=== PATIENT | female | born 1940 | race Caucasian/White ===

== ENCOUNTER → 2017-03-17 | Outpatient (CLI) | payer MEDICARE, BC ==
--- NOTE | 2017-03-18 10:58 | Diagnostic Imaging Report ---
EXAMINATION: Bilateral screening mammogram 2D views with tomosynthesis. The current study was also evaluated with a Computer Aided Detection (CAD) system. INDICATION: Screening. PERSONAL HISTORY: No current complaints stated on the questionnaire. COMPARISON: 03/14/2016. FINDINGS: The breasts are composed of heterogeneously dense parenchyma which may decrease mammographic sensitivity. Benign-appearing calcifications are seen. Allowing for technique and positional differences, no suspicious change is seen. IMPRESSION: No significant change. ACR BI-RADS Category 2: Benign findings. Result letter will be mailed to the patient. Note: At least 10% of breast cancer is not imaged by mammography. Dictated by: Dictated on workstation # [id number]
== END ==
LOC: RAD 10:41
PROVIDERS: ATTEND Nurse Practitioner Family
DX: Z12.31 Encounter for screening mammogram for malignant neoplasm of breast (principal)
CPT/HCPCS: 77067

== ENCOUNTER 2017-09-09 05:42 | Outpatient (CLI) | payer MEDICARE, BC ==
[~2017-09-09] VITALS: Ht 172.7 cm; Wt 60.3 kg
[2017-09-09] MEDS ORDERED: DILT180C54 PO (15:35)
[2017-09-09] MEDS ORDERED: ESTR0.3T PO (15:35)
[2017-09-09] MEDS ORDERED: LISI-552 PO (15:35)
[2017-09-09] MEDS ORDERED: POLY119P5 PO (15:35)
[2017-09-09] MEDS ORDERED: LINA145C PO (15:35)
[2017-09-09] MEDS ORDERED: OMEG1CAP PO (15:36)
[2017-09-09] MEDS ORDERED: LOVA20TA2 PO (15:36)
== END 2017-09-09 15:38 ==
LOC: PREOP 05:42
PROVIDERS: ATTEND Surgery
DX: Z01.818 Encounter for other preprocedural examination (principal); Z12.11 Encounter for screening for malignant neoplasm of colon

== ENCOUNTER 2017-09-15 08:39 | Day surgery (SDC) | payer MEDICARE, BC ==
[~2017-09-15] VITALS: Ht 172.7 cm; Wt 60.3 kg
[~2017-09-15 08:39] MED LIST: DILT180C54 PO; ESTR0.3T PO; LINA145C PO; LISI-552 PO; LOVA20TA2 PO; OMEG1CAP PO; POLY119P5 PO
[2017-09-15 09:03] VITALS: BP 157/82
[2017-09-15] MEDS ORDERED: NS IV 500 ML 500 ML ONE (09:19)
--- NOTE | 2017-09-15 09:34 | History & Physicial ---
History of Present Illness History of Present Illness Reason for visit/HPI to undergo screening colonoscopy. No family history of colon cancer Date of Admission 09/15/17 Date Seen by Provider: Sep 15, 2017 Time Seen by Provider: 09:32 I consulted on this patient on 09/15/17 09:32 Attending Physician Mellisa Davila MD Admitting Physician Jonathan Day MD Consult Allergies and Home Medications Allergies Coded Allergies: No Known Drug Allergies (Verified Allergy, Unknown, 11/24/06) Home Medications Diltiazem HCl 180 Mg Cap.er.24h, 180 MG PO DAILY, (Reported) Estrogens, Conjugated 0.3 Mg Tablet, 0.3 MG PO DAILY, (Reported) Linaclotide 145 Mcg Capsule, 145 MCG PO DAILY PRN for CONSTIPATION-2ND LINE, ( Reported) Lisinopril 20 Mg Tablet, 20 MG PO DAILY, (Reported) Lovastatin 20 Mg Tablet, 20 MG PO HS, (Reported) [place]-3 Acid Ethyl Esters 1 Gm Capsule, 1 GM PO HS, (Reported) Polyethylene Glycol 3350 119 Gm Powder, 17 GM PO HS PRN for CONSTIPATION-1ST LINE, (Reported) Patient Home Medication List Home Medication List Reviewed: Yes Past Lsrzshi-Rvvwfw-Xthzku Hx Patient Social History Marrital Status: Employed/Student: retired Alcohol Use: Occasionally Uses Alcohol Beverage of Choice: Wine Recreational Drug Use: No Smoking Status: Never a Smoker Recent Foreign Travel: No Contact w/other who traveled: No Recent Hopitalizations: No Recent Infectious Disease Expo: No Seasonal Allergies Seasonal Allergies: Yes Surgeries Bladder Surgery, Hysterectomy Cardiovascular Hypertension Reproductive System Hx Reproductive Disorders: No Gastrointestinal Chronic Constipation Constitutional: no symptoms reported EENTM: no symptoms reported Respiratory: no symptoms reported Cardiovascular: no symptoms reported Gastrointestinal: constipation Genitourinary: no symptoms reported Musculoskeletal: no symptoms reported Skin: no symptoms reported Psychiatric/Neurological: No Symptoms Reported Physical Exam Vital Signs Vital Signs - First Documented 09/15/17 09:03 Temp 98.0 Pulse 76 Resp 18 B/P (MAP) 157/82 (107) Pulse Ox 97 O2 Delivery Room Air Capillary Refill : General Appearance: No Apparent Distress Neck: Normal Inspection Respiratory: Lungs Clear Cardiovascular: Regular Rate, Rhythm Gastrointestinal: Non Tender, Soft Rectal: Deferred Extremity: Normal Inspection Neurologic/Psychiatric: Alert, Oriented x3 Skin: Warm/Dry Assessment/Plan Assessment and Plan lady here to undergo screening colonoscopy. Procedure details reviewed thoroughly. Seems to be in agreement to proceed Admission Diagnosis Admission Status: Other (Outpt Proc) MELLISA DAVILA MD Sep 15, 2017 09:34
--- NOTE | 2017-09-15 09:34 | Conscious Sedation/ASA ---
Conscious Sedation Pre-Proced Time Reviewed: 09:34 ASA Class: 2 Airway Mallampati Classification: ([place] appropriate class) I. II. III, IV Lungs Heart ASA score ASA 1: a normal healthy patient ASA 2: a patient with a mild systemic disease (mid diabetes, controlled hypertension, obesity ASA 3: a patient with a severe systemic disease that limits activity (angina , COPD, prior Myocardial infarction) ASA 4: a patient with an incapacitating disease that is a constant threat to life (CHF, renal failure) ASA 5: a moribund patient not expected to survive 24 hrs. (ruptured aneurysm) ASA 6: a declared brain patient whose organs are being harvested. For emergent operations, add the letter E after the classification Grade 1 Sedation Plan: Discussed options with patient/fam Note The patient is an appropriate candidate to undergo the planned procedure, sedation, and anesthesia. The patient immediately re-assessed prior to indication. MELLISA FINNEY MD Sep 15, 2017 09:34
[2017-09-15] MEDS ORDERED: MIDAZOLAM 2 MG/2 ML (VERSED) VIAL ONE ×3 (09:53→10:17)
[2017-09-15] MEDS ORDERED: fentaNYL INJECTION 100 MCG/2 ML AMP ONE (09:54)
[2017-09-15] MEDS: fentaNYL INJECTION 100 MCG/2 ML AMP IVP PRN ×2 (10:03→10:20)
[2017-09-15] MEDS: MIDAZOLAM 2 MG/2 ML (VERSED) VIAL IVP PRN ×3 (10:05→10:15)
--- NOTE | 2017-09-15 10:38 | Endo Procedure Record ---
Endo Procedure Report Date of Procedure Last Colonoscopy: Yes Sep 15, 2017 Surgeon (s) MELLISA FINNEY MD Post Procedure/Op Diagnosis sigmoid diverticulosis Procedure Performed colonoscopy to cecum Description of Procedure Anesthesia Type: Conscious Sedation Specimen(s) collected/removed no specimen Description of the Procedure Indication for the procedure: This lady came in for screening colonoscopy. Informed consent was obtained after reviewing the procedure in detail. Description of the procedure: She was placed in left lateral to cubitus position and her vital signs were monitored. Conscious sedation was achieved using Versed and fentanyl. Digital rectal examination was unremarkable. The colonoscope was then introduced in the rectum and advanced all the way up to cecum Redundancy of the colon made the examination slightly tedious. The scope was then withdrawn slowly and the mucosa examined in a systematic fashion. Findings: A minimal degree of sigmoid diverticulosis. No polyps were found She tolerated the procedure well and was taken back to the nursing area in a stable condition. Impression: Screening colonoscopy. No polyps. No family history. Copy Copies To 1: DEMETRICE ANDERSON MD, XAVIER M MD Sep 15, 2017 10:38
--- NOTE | 2017-09-15 10:40 | Discharge Inst-Simple/Standard ---
Discharge Inst-Standard Discharge Medications New, Converted or Re-Newed RX: Other Patient Instructions/Follow Up Plan of Care/Instructions/FU: f/u with primary PRN Activity as Tolerated: Yes Discharge Diet: No Restrictions MELLISA FINNEY MD Sep 15, 2017 10:40
[2017-09-15 10:45] VITALS: BP 109/43
[2017-09-15 11:22] VITALS: BP 100/83
[2017-09-15] MEDS ORDERED: NS IV 500 ML 500 ML IV PRN (11:28)
[2017-09-15 11:45] VITALS: BP 100/83
== END 2017-09-15 11:45 | disposition home or self-care (01) ==
LOC: ENDO 08:39
PROVIDERS: ATTEND Surgery
DX: Z12.11 Encounter for screening for malignant neoplasm of colon (principal); K57.30 Diverticulosis of large intestine without perforation or abscess without bleeding; K59.09 Other constipation
CPT/HCPCS: G0121

== ENCOUNTER → 2018-03-19 | Outpatient (CLI) | payer MEDICARE, BC ==
--- NOTE | 2018-03-19 20:20 | Diagnostic Imaging Report ---
INDICATION: Routine screening. Comparison is made with prior mammograms from 03/17/2017 and 03/14/2016. 2-D and 3-D bilateral screening mammography was performed with computer-aided detection (CAD) system. FINDINGS: Scattered fibroglandular densities are identified bilaterally. The parenchymal pattern appears stable. No dominant mass or malignant-appearing microcalcifications are seen. The axillae are unremarkable. IMPRESSION: No mammographic features suspicious for malignancy are identified. ACR BI-RADS Category 1: Negative. Result letter will be mailed to the patient. Note: At least 10% of breast cancer is not imaged by mammography. Dictated by: Dictated on workstation # [id number]
== END ==
LOC: RAD 10:14
DX: Z12.31 Encounter for screening mammogram for malignant neoplasm of breast (principal)
CPT/HCPCS: 77067

== ENCOUNTER 2020-02-29 05:47 | Outpatient (RCR) | payer MEDICARE, BC ==
[~2020-02-29] VITALS: Ht 172.7 cm; Wt 59.1 kg
[2020-02-29] MEDS ORDERED: ASPI-999 PO (14:14)
[2020-02-29] MEDS ORDERED: VITA-246 PO (14:14)
[2020-02-29] MEDS ORDERED: ESCI10TA55 PO (14:14)
[2020-02-29] MEDS ORDERED: DILT240C53 PO (14:14)
[2020-02-29] MEDS ORDERED: ASCO500C17 PO (14:14)
[2020-02-29] MEDS ORDERED: BIOT10005 PO (14:14)
== END 2020-02-29 14:30 | disposition home or self-care (01) ==
LOC: PREOP 05:47
PROVIDERS: ATTEND Specialist
DX: Z01.818 Encounter for other preprocedural examination (principal)

== ENCOUNTER → 2020-03-01 | Outpatient (CLI) | payer MEDICARE, BC ==
[~2020-03-01] MED LIST changes: +ASCO500C17 PO; +ASPI-999 PO; +BIOT10005 PO; +DILT240C53 PO; +ESCI10TA55 PO; +VITA-246 PO
== END ==
LOC: LAB FS 10:28
PROVIDERS: ATTEND Specialist
DX: Z01.812 Encounter for preprocedural laboratory examination (principal); Z20.828 Contact with and (suspected) exposure to other viral communicable diseases
CPT/HCPCS: 87635

== ENCOUNTER 2020-03-03 06:01 | Day surgery (SDC) | payer MEDICARE, BC ==
[~2020-03-03] VITALS: Ht 172.7 cm; Wt 59.1 kg
[2020-03-03] MEDS ORDERED: MOXIFLOXACIN OPHTH SOLN 5 MG/ML 0.3 ML SYRINGE OP ONE (06:15)
[2020-03-03] MEDS ORDERED: TIMOLOL MALEATE 0.5% 5 ML (TIMOPTIC) BTL OU PRN (06:15)
[2020-03-03] MEDS ORDERED: LIDOCAINE PF 1% 2 ML VIAL IR PRN (06:15)
[2020-03-03] MEDS ORDERED: POVIDONE (BETADINE) OPHTH SOLN 5% 30 ML OP ONE (06:15)
[2020-03-03] MEDS: TETRACAINE 0.5% OPHTH SOLN 4 ML BTL (SINGLE DOSE ONLY) OU PRN ×4 (06:24→06:49)
[2020-03-03 06:27] VITALS: BP 143/68
[2020-03-03] MEDS: TROPICAMIDE 1% OPH SOLN (MYDRIACYL) 15 ML BTL OP SCH ×3 (06:35→06:49)
[2020-03-03] MEDS: PHENYLEPHRINE 10% OPHTH (NEO-SYN) 5 ML BTL OU SCH ×3 (06:35→06:49)
[2020-03-03] MEDS ORDERED: MIDAZOLAM 2 MG/2 ML (VERSED) VIAL ONE (06:44)
--- NOTE | 2020-03-03 07:27 | Ophthalmologist Pre-Op Note ---
Pre-Operative Progress Note H&P Reviewed The H&P was reviewed, patient examined and no changes noted. Date H&P Reviewed: Mar 03, 2020 Time H&P Reviewed: 07:27 Pre-Op Dx Cataract, Right Eye LASHAE BOX MD Mar 03, 2020 07:27
--- NOTE | 2020-03-03 07:48 | Ophthalmology Operative Report ---
Cataract removal/placement IOL PREOPERATIVE DIAGNOSIS: Cataract Right Eye POSTOPERATIVE DIAGNOSIS: Cataract Right Eye PROCEDURE: Cataract removal and placement of posterior chamber implant, right eye SURGEON: Patricio Box ANESTHESIA: Topical with sedation COMPLICATIONS: None ESTIMATED BLOOD LOSS: Minimal DESCRIPTION OF PROCEDURE: After proper informed consent was obtained, the patient, a 79 female, was taken to the Operating Room and the right eye was anesthetized with tetracaine. The right eye was then prepped and draped in the usual manner. A wire lid speculum was placed. A paracentesis was made at the left hand position. Preservative free lidocaine was injected into the anterior chamber followed by viscoelastic. A clear corneal incision was made in the temporal position. A capsulorrhexis was preformed and the central nuclear and cortical material were removed. The posterior capsule was polished and Hema 21.5 AU00T0 IOL was placed into the capsular bag. The residual viscoelastic was aspirated and balanced saline solution was injected into the anterior chamber. Moxifloxacin was injected into the anterior chamber. The wound was checked and found to be water tight. The patient tolerated the procedure well without complications. PATRICIO BOX MD Mar 03, 2020 07:48
--- NOTE | 2020-03-03 07:49 | Ophthalmologist Pre-Op Note ---
Pre-Operative Progress Note H&P Reviewed The H&P was reviewed, patient examined and no changes noted. Date H&P Reviewed: Mar 03, 2020 Time H&P Reviewed: 07:49 Pre-Op Dx Cataract, Right Eye LASHAE BOX MD Mar 03, 2020 07:49
[2020-03-03 07:55] VITALS: BP 172/74
--- NOTE | 2020-03-03 07:57 | Anesthesia-General Post-Op ---
MAC Patient Condition Mental Status/LOC: Same as Preop Cardiovascular: Satisfactory Nausea/Vomiting: Absent Respiratory: Satisfactory Pain: Controlled Complications: Absent Post Op Complications Complications None Follow Up Care/Instructions Patient Instructions None needed. Anesthesiology Discharge Order Discharge Order Patient is doing well, no complaints, stable vital signs, no apparent adverse anesthesia problems. No complications reported per nursing. ANNETTE HIRSCH CRNA Mar 03, 2020 07:57
[2020-03-03] MEDS ORDERED: acetaZOLAMIDE ER 500 MG CAP (DIAMOX SEQUELS) PO ONE (08:00)
== END 2020-03-03 07:55 | disposition home or self-care (01) ==
LOC: SDC 06:01
PROVIDERS: ATTEND Specialist
DX: H25.11 Age-related nuclear cataract, right eye (principal); I10 Essential (primary) hypertension; F32.9 Major depressive disorder, single episode, unspecified; E78.00 Pure hypercholesterolemia, unspecified; Z79.899 Other long term (current) drug therapy; Z80.8 Family history of malignant neoplasm of other organs or systems
CPT/HCPCS: 66984; V2632

== ENCOUNTER 2020-03-14 05:46 | Outpatient (RCR) | payer MEDICARE, BC ==
[~2020-03-14] VITALS: Ht 172 cm; Wt 59.1 kg
== END 2020-03-15 10:07 | disposition home or self-care (01) ==
LOC: PREOP 05:46
PROVIDERS: ATTEND Specialist
DX: Z01.812 Encounter for preprocedural laboratory examination (principal); H25.9 Unspecified age-related cataract

== ENCOUNTER → 2020-03-15 | Outpatient (CLI) | payer MEDICARE, BC | LOC: LAB FS 10:59 | PROVIDERS: ATTEND Specialist | DX: Z01.812 Encounter for preprocedural laboratory examination (principal); Z20.828 Contact with and (suspected) exposure to other viral communicable diseases | CPT/HCPCS: 87635 ==

== ENCOUNTER 2020-03-17 06:12 | Day surgery (SDC) | payer MEDICARE, BC ==
[~2020-03-17] VITALS: Ht 172 cm; Wt 59.0 kg
[2020-03-17] MEDS ORDERED: MOXIFLOXACIN OPHTH SOLN 5 MG/ML 0.3 ML SYRINGE OP ONE (06:15)
[2020-03-17] MEDS ORDERED: LIDOCAINE PF 1% 2 ML VIAL IR PRN (06:15)
[2020-03-17] MEDS ORDERED: TIMOLOL MALEATE 0.5% 5 ML (TIMOPTIC) BTL OU PRN (06:15)
[2020-03-17] MEDS ORDERED: POVIDONE (BETADINE) OPHTH SOLN 5% 30 ML OP ONE (06:15)
[2020-03-17] MEDS: TETRACAINE 0.5% OPHTH SOLN 4 ML BTL (SINGLE DOSE ONLY) OU PRN ×4 (06:36→06:56)
[2020-03-17] MEDS ORDERED: MIDAZOLAM 2 MG/2 ML (VERSED) VIAL ONE (06:41)
[2020-03-17 06:42] VITALS: BP 178/82
[2020-03-17] MEDS: PHENYLEPHRINE 10% OPHTH (NEO-SYN) 5 ML BTL OU SCH ×3 (06:45→06:56)
[2020-03-17] MEDS: TROPICAMIDE 1% OPH SOLN (MYDRIACYL) 15 ML BTL OP SCH ×3 (06:45→06:56)
--- NOTE | 2020-03-17 07:22 | Ophthalmologist Pre-Op Note ---
Pre-Operative Progress Note H&P Reviewed The H&P was reviewed, patient examined and no changes noted. Date H&P Reviewed: Mar 17, 2020 Time H&P Reviewed: 07:22 Pre-Op Dx Cataract, Left Eye LASHAE BOX MD Mar 17, 2020 07:22
[2020-03-17] MEDS ORDERED: acetaZOLAMIDE ER 500 MG CAP (DIAMOX SEQUELS) PO ONE (07:30)
--- NOTE | 2020-03-17 07:42 | Ophthalmology Operative Report ---
Cataract removal/placement IOL PREOPERATIVE DIAGNOSIS: Cataract Left Eye POSTOPERATIVE DIAGNOSIS: Cataract Left Eye PROCEDURE: Cataract removal and placement of posterior chamber implant, left eye SURGEON: Patricio Box ANESTHESIA: Topical with sedation COMPLICATIONS: None ESTIMATED BLOOD LOSS: Minimal DESCRIPTION OF PROCEDURE: After proper informed consent was obtained, the patient, a 79 female, was taken to the Operating Room and the left eye was anesthetized with tetracaine. The left eye was then prepped and draped in the usual manner. A wire lid speculum was placed. A paracentesis was made at the left hand position. Preservative free lidocaine was injected into the anterior chamber followed by viscoelastic. A clear corneal incision was made in the temporal position. A capsulorrhexis was preformed and the central nuclear and cortical material were removed. The posterior capsule was polished and an Hema 22.5 AU00T0 was placed into the capsular bag. The residual viscoelastic was aspirated and balanced saline solution was injected into the anterior chamber. Moxifloxacin was injected into the anterior chamber. The wound was checked and found to be water tight. The patient tolerated the procedure well without complications. PATRICIO BOX MD Mar 17, 2020 07:42
[2020-03-17 07:46] VITALS: BP 159/74
--- NOTE | 2020-03-17 10:57 | Anesthesia-General Post-Op ---
MAC Patient Condition Mental Status/LOC: Same as Preop Cardiovascular: Satisfactory Nausea/Vomiting: Absent Respiratory: Satisfactory Pain: Controlled Complications: Absent Post Op Complications Complications None Follow Up Care/Instructions Patient Instructions None needed. Anesthesiology Discharge Order Discharge Order Patient is doing well, no complaints, stable vital signs, no apparent adverse anesthesia problems. No complications reported per nursing. FAIZA NOEL CRNA Mar 17, 2020 10:57
== END 2020-03-17 07:48 ==
LOC: SDC 06:12
PROVIDERS: ATTEND Specialist
DX: H25.12 Age-related nuclear cataract, left eye (principal); I10 Essential (primary) hypertension; F32.9 Major depressive disorder, single episode, unspecified; E78.00 Pure hypercholesterolemia, unspecified; Z79.899 Other long term (current) drug therapy
CPT/HCPCS: 66984; V2632

== ENCOUNTER 2022-04-23 13:17 | Outpatient (CLI) | payer MEDICARE, BC ==
[~2022-04-23 13:17] MED LIST changes: +ESCI-2 PO; -ESCI10TA55 PO; -LISI-552 PO; +LISI20TA26 PO; +NF-LOVAZAC PO; -OMEG1CAP PO
== END 2022-04-23 13:50 ==
LOC: SLEEP 13:17
PROVIDERS: ATTEND Otolaryngology Otolaryngology/Facial Plastic Surgery
DX: G47.33 Obstructive sleep apnea (adult) (pediatric) (principal)
CPT/HCPCS: G0399

== ENCOUNTER 2022-08-06 15:48 | Emergency (ER) | payer MEDICARE, BC ==
[~2022-08-06] VITALS: Ht 170 cm; Wt 62.8 kg
[2022-08-06 16:08] VITALS: BP 181/77
[2022-08-06] MEDS ORDERED: ENOXAPARIN 60 MG/0.6 ML (LOVENOX) SYR SC ONE (16:15)
--- NOTE | 2022-08-06 16:20 | ED Lower Extremity ---
General Chief Complaint: Lower Extremity Stated Complaint: R LEG SWELLING Nursing Triage Note: Patient has presented to ER with cc of right leg swelling for the last 3 weeks. She denies injury to her leg. She saw her doctor last week and stopped a medication - and the swelling got better during middle of last week. The pain and swelling has gotten worse the last few days. She presented to ER for evaluation. Source: patient Exam Limitations: no limitations History of Present Illness Date Seen by Provider: Aug 06, 2022 Time Seen by Provider: 15:51 Initial Comments 81-year-old female presents to the emergency department today for right leg swelling. Symptoms present for about 3 weeks now. She went to her primary care doctor on Friday and they stopped diltiazem thinking this might be causative. She states that she has had continued worsening swelling and pain. No chest pain or shortness of breath. She did take estrogen supplementation and they stopped this at that time as well. She is here requesting venous Doppler. All other systems reviewed and negative except documented per HPI. Voice recognition software was used to help create this chart Allergies and Home Medications Allergies Coded Allergies: No Known Drug Allergies (Verified Allergy, Unknown, 11/24/06) Patient Home Medication List Home Medication List Reviewed: Yes Ascorbic Acid (Vitamin C) 500 Mg Capsule, 500 MG PO DAILY, (Reported) Entered as Reported by: SENG VIVAS on 02/29/201413 Aspirin (Aspirin) 81 Mg Tab.chew, 81 MG PO DAILY, (Reported) Entered as Reported by: SENG VIVAS on 02/29/20 141 Biotin (Biotin) 10,000 Mcg Capsule, 10,000 MCG PO DAILY, (Reported) Entered as Reported by: SENG VIVAS on 02/29/201413 Diltiazem HCl (Cartia Xt) 240 Mg Cap.er.24h, 240 MG PO DAILY, (Reported) Entered as Reported by: SENG VIVAS on 02/29/20 141 Escitalopram Oxalate (Escitalopram Oxalate) 10 Mg Tablet, 10 MG PO DAILY, (Reported) Entered as Reported by: SENG VIVAS on 02/29/20 141 Estrogens, Conjugated (Premarin) 0.3 Mg Tablet, 0.3 MG PO DAILY, (Reported) Entered as Reported by: SENG VIVAS on 09/09/17 1535 Lisinopril (Lisinopril) 20 Mg Tablet, 20 MG PO DAILY, (Reported) Entered as Reported by: SENG VIVAS on 09/09/17 153 Lovastatin (Lovastatin) 20 Mg Tablet, 20 MG PO HS, (Reported) Entered as Reported by: SENG VIVAS on 09/09/17 153 [place]-3 Acid Ethyl Esters (Lovaza) 1 Gm Capsule, 1 GM PO HS, (Reported) Entered as Reported by: SENG VIVAS on 09/09/17 153 Vitamin D3/Vitamin K2 (Mk4) (K2 Plus D3 Tablet) 1 Each Tablet, 1 EACH PO DAILY, (Reported) Entered as Reported by: SENG VIVAS on 02/29/20 1414 Review of Systems Constitutional: see HPI Past Kaqmvoz-Xcebzy-Smajck Hx Patient Social History Tobacco Use?: No Use of E-Cig and/or Vaping dev: No Substance use?: No Alcohol Use?: No Pt feels they are or have been: No Seasonal Allergies Seasonal Allergies: Yes Past Medical History Bladder Surgery, Hysterectomy Hypertension Reproductive Disorders: No Chronic Constipation Family Medical History Reviewed Nursing Family Hx No Pertinent Family Hx Physical Exam Vital Signs Vital Signs - First Documented 08/06/22 16:08 Temp 37.0 Pulse 79 Resp 18 B/P (MAP) 181/77 (111) Pulse Ox 98 O2 Delivery Room Air Capillary Refill : Height, Weight, BMI Height: 5'8.00" Weight: 133lbs. 0.0oz. 60.920027yf; 21.00 BMI Method: General Appearance: WD/WN, no apparent distress HEENT: normal ENT inspection, pharynx normal Neck: non-tender, supple Cardiovascular: regular rate, rhythm, no murmur Respiratory: chest non-tender, lungs clear, normal breath sounds, no respiratory distress Legs: left leg other (Very mild minimal swelling of the left leg, trace. Neurovascular motor and sensory intact.) Knees: bilateral knee non-tender, bilateral knee normal inspection, bilateral knee normal range of motion Ankles: bilateral ankle non-tender, bilateral ankle normal inspection, bilateral ankle normal range of motion Skin: normal color, warm/dry Progress/Results/Core Measures Results/Orders My Orders Orders - ALISHA POLANCO DO Enoxaparin Injection (Lovenox Injection) (08/06/22 16:15) Medications Given in ED Current Medications Medications Dose Ordered Sig/Valente Route Start Time Stop Time Status Last Admin Dose Admin Enoxaparin Sodium 60 mg ONCE ONCE SC 08/06/22 16:15 08/06/22 16:16 DC 08/06/22 16:14 60 MG Vital Signs/I&O 08/06/22 16:08 Temp 37.0 Pulse 79 Resp 18 B/P (MAP) 181/77 (111) Pulse Ox 98 O2 Delivery Room Air Blood Pressure Mean: 111 Departure Communication (Admissions) The patient is hemodynamically stable. She has right greater than left leg swelling. Differential considerations include traumatic injury, infectious process, DVT. DVT is by far the most likely given the patient has been on estrogen for 40+ years. Infectious source less likely as there is no erythema fevers chills and symptoms present for 3 weeks. Patient has no history of trauma. She did recently stop diltiazem however I think it is unlikely that this is causing her swelling, especially focal swelling in the right leg. She has almost no swelling in the left leg at all. She has no stigmata of PE. She is no tachycardia, chest pain, tachypnea and her oxygen saturation is normal. I gave her a dose of Lovenox here. I tried to schedule this out for her in the morning but unfortunately ultrasound is not here then. I advise she go to go down to [place] to have this done first thing in the morning and she states she has a her appointment at 10:00 and cannot make that. She does agree to have an ultrasound here at 8 AM on . I advised that she needs to return to care immediately if she develops any chest pain or shortness of breath. She states understanding. Ultrasound results we fax her primary care doctor in [facility] Primary Impression: Right leg swelling Disposition: 01 HOME, SELF-CARE Condition: Stable Departure-Patient Inst. Referrals: DEMETRICE ANDERSON MD (PCP/Family) Primary Care Physician Patient Instructions: Deep Vein Thrombosis (DVT) ED Add. Discharge Instructions: We have scheduled you for your ultrasound at 8:00 on . Please be here just a little before 8. Have given you a dose of blood thinning medication here. The results of her ultrasound will be faxed to your primary doctor. If positive you need to be on a blood thinner. Please follow-up with them for further treatment recommendations. Return to the emergency department immediately if you develop any chest pain or shortness of breath. Use ibuprofen and Tylenol as needed for pain. All discharge instructions reviewed with patient and/or family. Voiced understanding. ALISHA POLANCO DO Aug 06, 2022 16:20
== END 2022-08-06 16:30 | disposition home or self-care (01) ==
LOC: EDUNIT# 15:48 → ER FS 15:49
DX: M79.89 Other specified soft tissue disorders (principal); Z79.890 Hormone replacement therapy
CPT/HCPCS: 99281

== ENCOUNTER → 2022-08-08 | Outpatient (CLI) | payer MEDICARE, BC ==
--- NOTE | 2022-08-08 09:27 | Diagnostic Imaging Report ---
PROCEDURE: US right lower extremity venous. TECHNIQUE: Multiple real-time grayscale images were obtained over the right lower extremity in various projections. Additional spectral analysis and color Doppler duplex images were also obtained. INDICATION: Right leg pain and swelling. There is no evidence of right lower extremity DVT. Right lower extremity deep venous system shows normal compressibility with normal response to augmentation and Valsalva. No fluid collection or mass is detected. IMPRESSION: No evidence of right lower extremity DVT. Dictated by: Dictated on workstation # [id number]
== END ==
LOC: RAD FS 07:45
PROVIDERS: ATTEND Emergency Medicine
DX: M79.604 Pain in right leg (principal); M79.89 Other specified soft tissue disorders